=== PATIENT | female | born 2000 | race Caucasian/White ===

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

== ENCOUNTER → 2021-09-13 14:40 | Outpatient (BNVA) | payer BC, MEDICAID, SELFPAY | PROVIDERS: Family Provider Family Medicine; PCP Family Medicine; Visit Provider Emergency Medicine | DX: Z34.90 Encounter for supervision of normal pregnancy, unspecified, unspecified trimester (principal) | CPT/HCPCS: 84703 ==

== ENCOUNTER → 2021-09-22 11:27 | Outpatient (BNVA) | payer BC, MEDICAID, SELFPAY | PROVIDERS: Family Provider Family Medicine; PCP Family Medicine; Visit Provider Nurse Practitioner Family | DX: J02.0 Streptococcal pharyngitis (principal); B34.0 Adenovirus infection, unspecified; E28.2 Polycystic ovarian syndrome | CPT/HCPCS: 87071; 87880 ==

== ENCOUNTER → 2021-09-28 09:58 | Outpatient (BNVA) | payer BC, MEDICAID, SELFPAY | PROVIDERS: Family Provider Family Medicine; PCP Family Medicine; Visit Provider Emergency Medicine | DX: Z32.00 Encounter for pregnancy test, result unknown (principal) | CPT/HCPCS: 84703 ==

== ENCOUNTER → 2021-10-25 13:08 | Outpatient (BNVA) | payer BC, MEDICAID, SELFPAY | PROVIDERS: Family Provider Family Medicine; PCP Family Medicine; Visit Provider Obstetrics & Gynecology | DX: Z34.80 Encounter for supervision of other normal pregnancy, unspecified trimester (principal) | CPT/HCPCS: 80307; 81000; 82950; 84443; 85025; 86592; 86762; 86787; 86803; 86850; 86900; 87086; 87340; 87806 ==

== ENCOUNTER → 2021-11-22 15:47 | Outpatient (BNVA) | payer BC, MEDICAID, SELFPAY | PROVIDERS: Family Provider Family Medicine; PCP Family Medicine; Visit Provider Obstetrics & Gynecology | DX: Z34.80 Encounter for supervision of other normal pregnancy, unspecified trimester (principal) | CPT/HCPCS: 81000; 87491; 87591; 87661 ==

== ENCOUNTER → 2021-12-21 15:59 | Outpatient (BNVA) | payer BC, MEDICAID, SELFPAY | PROVIDERS: Family Provider Family Medicine; PCP Family Medicine; Visit Provider Obstetrics & Gynecology | DX: Z34.80 Encounter for supervision of other normal pregnancy, unspecified trimester (principal) | CPT/HCPCS: 81000 ==

== ENCOUNTER → 2022-01-18 10:25 | Outpatient (BNVA) | payer BC, MEDICAID, SELFPAY | PROVIDERS: Family Provider Family Medicine; PCP Family Medicine; Visit Provider Obstetrics & Gynecology | DX: O09.899 Supervision of other high risk pregnancies, unspecified trimester (principal); Z3A.00 Weeks of gestation of pregnancy not specified | CPT/HCPCS: 84315; 87086 ==

== ENCOUNTER → 2022-01-30 15:44 | Outpatient (BNVA) | payer BC, MEDICAID, SELFPAY | PROVIDERS: Family Provider Family Medicine; PCP Family Medicine; Visit Provider Obstetrics & Gynecology | DX: Z34.90 Encounter for supervision of normal pregnancy, unspecified, unspecified trimester (principal) | CPT/HCPCS: 81000; 87086 ==

== ENCOUNTER → 2022-02-11 14:53 | Outpatient (BNVA) | payer BC, MEDICAID, SELFPAY | PROVIDERS: Family Provider Family Medicine; PCP Family Medicine; Visit Provider Obstetrics & Gynecology | DX: Z34.80 Encounter for supervision of other normal pregnancy, unspecified trimester (principal) | CPT/HCPCS: 81000; 87086 ==

== ENCOUNTER 2022-03-01 22:06 | Outpatient (CLI) | payer BC, MEDICAID, SELFPAY ==
[2022-03-01] VITALS (21 sets, daily range): BP systolic 127–149; BP diastolic 59–79; PULSE 91–109; TEMP 36.8; O2SAT 97–99; BMI 57.3
[2022-03-01 23:15] LABS: Basophils % 0.1 %; Eosinophils # 0.1 10^3/uL (0.0-0.8); Eosinophils % 0.5 %; Hematocrit 33.9 % (37.0-47.0); Hemoglobin 11.6 g/dL (11.5-15.3); Lymphocytes # 2.2 10^3/uL (1.5-6.5); Lymphocytes % 15.1 %; Mean Corpuscular HGB Conc 34.2 g/dL (30.0-36.0); Mean Corpuscular Volume 90.6 fl (81-99); Mean Platelet Volume 9.5 fL (7.4-10.4); Monocytes % 6.8 %; Neutrophils # 11.42 10^3/uL (1.8-8.0); Neutrophils % 76.9 %; Nucleated Red Blood Cells % 0 %; Platelet Count 314 10^3/cmm (130-400); Red Blood Count 3.74 10^6/uL (4.1-5.3); Red Cell Distribution Width 13.4 % (12.1-15.1); White Blood Count 14.9 10^3/uL (4.5-13.0)
[2022-03-01 23:20] LABS: Urine Appearance Clear (CLEAR); Urine Color Yellow (Yellow); pH Urine 6 (5-7)
[2022-03-01 23:21] LABS: Add Urine Microscopic? YES; Bilirubin Urine Neg (Negative); Blood Urine Neg (Negative); Glucose Urine UA Norm (Normal); Ketones Urine Negative (Negative); Leukocyte Esterase Urine Trace (Negative); Nitrate Urine Negative (Negative); Protein Urine Neg (Negative); Urobilinogen Urine Norm (Negative)
[2022-03-01 23:22] LABS: Add Urine Culture? No; Bacteria Urine TRACE /hpf; RBC Urine 0-4 /hpf (0-2); WBC Urine 0-4 /hpf (0-5)
[2022-03-01 23:24] LABS: Amphetamines Screen Urine Negative (Negative); Barbiturates Screen Urine Negative (Negative); Benzodiazepines Screen Urine Negative (Negative); Cocaine Screen Urine Negative (Negative); Opiate Screen Urine Negative (Negative); PCP Screen Urine Negative (Negative); THC Screen Urine Negative (Negative)
[2022-03-01 23:29] LABS: Alanine Aminotransferase 10 U/L (0-33); Albumin Level 3.7 g/dL (3.5-5.2); Alkaline Phosphatase 93 IU/L (35-105); Anion Gap 15.1 (5-19); Aspartate Amino Transferase 12 U/L (0-32); Blood Urea Nitrogen 9 mg/dL (6-20); Calcium 8.2 mg/dL (8.5-10.5); Carbon Dioxide 22 mmol/L (22-29); Chloride 102 mmol/L (98-107); Globulin 2.6 g/dL (1.3-4.6); Glomerular Filtration Rate 157.3 mL/min (90-130); Glucose 82 mg/dL (65-115); Osmolality Calculated 278 mOsm/kg (285-295); Potassium 4.1 mmol/L (3.5-5.1); Sodium 135 mmol/L (136-145); Total Bilirubin 0.2 mg/dL (0.15-1.2); Total Protein 6.3 g/dL (6.6-8.7)
[2022-03-01 23:38] LABS: Urine Creatinine 145 mg/dL (28-217); Urine Protein Random 17 mg/dL
[2022-03-01 23:43] LABS: UPRO/UCREAT Ratio 0.12 mg/mg CR
[2022-03-02 00:02] VITALS: PULSE 106; O2SAT 97
[2022-03-02 00:07] VITALS: PULSE 93; O2SAT 99
[2022-03-02 00:10] VITALS: TEMP 35.9
[2022-03-02 00:12] VITALS: PULSE 102; O2SAT 97
[2022-03-02 00:17] VITALS: PULSE 98; O2SAT 98
[2022-03-02 01:03] VITALS: RESP 18
== END 2022-03-02 00:30 | disposition home or self-care (01) ==
LOC: OPOB 22:06 → OBGYN 22:07
PROVIDERS: Family Provider Family Medicine; PCP Family Medicine; Visit Provider Obstetrics & Gynecology
DX: O16.9 Unspecified maternal hypertension, unspecified trimester (principal); Z3A.00 Weeks of gestation of pregnancy not specified
CPT/HCPCS: 36415; 80053; 80306; 81001; 82570; 84156; 84550; 85025; 99211

== ENCOUNTER → 2022-03-13 11:19 | Outpatient (BNVA) | payer BC, MEDICAID, SELFPAY | PROVIDERS: Family Provider Family Medicine; PCP Family Medicine; Visit Provider Obstetrics & Gynecology | DX: Z34.90 Encounter for supervision of normal pregnancy, unspecified, unspecified trimester (principal) | CPT/HCPCS: 81000 ==

== ENCOUNTER → 2022-03-20 09:36 | Outpatient (BNVA) | payer BC, MEDICAID, SELFPAY | PROVIDERS: Family Provider Family Medicine; PCP Family Medicine; Visit Provider Obstetrics & Gynecology | DX: Z34.90 Encounter for supervision of normal pregnancy, unspecified, unspecified trimester (principal) | CPT/HCPCS: 82950; 85025 ==

== ENCOUNTER → 2022-03-25 13:59 | Outpatient (BNVA) | payer BC, MEDICAID, SELFPAY | PROVIDERS: Family Provider Family Medicine; PCP Family Medicine; Visit Provider Obstetrics & Gynecology | DX: Z34.90 Encounter for supervision of normal pregnancy, unspecified, unspecified trimester (principal) | CPT/HCPCS: 81000 ==

== ENCOUNTER → 2022-03-27 09:30 | Outpatient (BNVA) | payer BC, MEDICAID, SELFPAY | PROVIDERS: Family Provider Family Medicine; PCP Family Medicine; Visit Provider Obstetrics & Gynecology | DX: Z34.90 Encounter for supervision of normal pregnancy, unspecified, unspecified trimester (principal) | CPT/HCPCS: 81000 ==

== ENCOUNTER → 2022-03-28 08:23 | Outpatient (BNVA) | payer BC, MEDICAID, SELFPAY | PROVIDERS: Family Provider Family Medicine; PCP Family Medicine; Visit Provider Obstetrics & Gynecology | DX: Z34.90 Encounter for supervision of normal pregnancy, unspecified, unspecified trimester (principal) | CPT/HCPCS: 82951; 82952 ==

== ENCOUNTER → 2022-04-12 15:43 | Outpatient (BNVA) | payer BC, MEDICAID, SELFPAY | PROVIDERS: Family Provider Family Medicine; PCP Family Medicine; Visit Provider Obstetrics & Gynecology | DX: Z34.80 Encounter for supervision of other normal pregnancy, unspecified trimester (principal) | CPT/HCPCS: 81000; 87081 ==

== ENCOUNTER → 2022-04-24 13:20 | Outpatient (BNVA) | payer BC, MEDICAID, SELFPAY | PROVIDERS: Family Provider Family Medicine; PCP Family Medicine; Visit Provider Obstetrics & Gynecology | DX: Z34.80 Encounter for supervision of other normal pregnancy, unspecified trimester (principal) | CPT/HCPCS: 81000 ==

== ENCOUNTER → 2022-05-02 09:08 | Outpatient (BNVA) | payer BC, MEDICAID, SELFPAY | PROVIDERS: Family Provider Family Medicine; PCP Family Medicine; Visit Provider Obstetrics & Gynecology | DX: Z34.80 Encounter for supervision of other normal pregnancy, unspecified trimester (principal) | CPT/HCPCS: 81000 ==

== ENCOUNTER → 2022-05-09 09:00 | Outpatient (BNVA) | payer BC, MEDICAID, SELFPAY | PROVIDERS: Family Provider Family Medicine; PCP Family Medicine; Visit Provider Obstetrics & Gynecology | DX: Z34.80 Encounter for supervision of other normal pregnancy, unspecified trimester (principal) | CPT/HCPCS: 81000 ==

== ENCOUNTER 2022-05-10 17:43 | Inpatient (IN) | payer BC, MEDICAID, SELFPAY ==
[2022-05-10] VITALS (13 sets, daily range): BP systolic 126–180; BP diastolic 74–99; PULSE 94–123; RESP 18; TEMP 36.4; BMI 60.2
[2022-05-10] MEDS: miSOPROStol 100 mcg tablet 25 MCG VAGINAL ×3 (13:41→22:16)
[2022-05-10 13:44] LABS: Basophils % 0.1 %; Eosinophils # 0.1 10^3/uL (0.0-0.8); Eosinophils % 0.6 %; Hematocrit 33.9 % (37.0-47.0); Lymphocytes # 1.8 10^3/uL (1.5-6.5); Lymphocytes % 16.3 %; Mean Corpuscular HGB Conc 35.4 g/dL (30.0-36.0); Mean Corpuscular Hemoglobin 31.1 pg (28.0-34.0); Mean Corpuscular Volume 87.8 fl (81-99); Mean Platelet Volume 10.9 fL (7.4-10.4); Monocytes # 0.6 10^3/uL (0.2-0.9); Monocytes % 5.5 %; Neutrophils # 8.48 10^3/uL (1.8-8.0); Neutrophils % 77.1 %; Nucleated Red Blood Cells % 0 %; Platelet Count 305 10^3/cmm (130-400); Red Blood Count 3.86 10^6/uL (4.1-5.3); Red Cell Distribution Width 13.5 % (12.1-15.1)
[2022-05-10 14:02] LABS: Slide Review Slide Review Perform
[2022-05-10 14:16] LABS: Alanine Aminotransferase 12 U/L (0-33); Albumin Level 3.5 g/dL (3.5-5.2); Alkaline Phosphatase 100 IU/L (35-105); Anion Gap 17.9 (5-19); Aspartate Amino Transferase 12 U/L (0-32); Blood Urea Nitrogen 10 mg/dL (6-20); Calcium 9.1 mg/dL (8.5-10.5); Carbon Dioxide 19 mmol/L (22-29); Chloride 103 mmol/L (98-107); Globulin 2.8 g/dL (1.3-4.6); Glomerular Filtration Rate 157.3 mL/min (90-130); Glucose 103 mg/dL (65-115); Osmolality Calculated 281 mOsm/kg (285-295); Potassium 3.9 mmol/L (3.5-5.1); Sodium 136 mmol/L (136-145); Total Bilirubin 0.2 mg/dL (0.15-1.2); Total Protein 6.3 g/dL (6.6-8.7); Uric Acid 5.8 mg/dL (2.4-5.7)
[2022-05-10 14:41] LABS: Amphetamines Screen Urine Negative (Negative); Barbiturates Screen Urine Negative (Negative); Benzodiazepines Screen Urine Negative (Negative); Cocaine Screen Urine Negative (Negative); Opiate Screen Urine Negative (Negative); PCP Screen Urine Negative (Negative); THC Screen Urine Negative (Negative)
[2022-05-10 14:56] LABS: UPRO/UCREAT Ratio 0.21 mg/mg CR; Urine Creatinine 383 mg/dL (28-217); Urine Protein Random 81 mg/dL
--- NOTE | 2022-05-10 18:00 | PM.OPHPUD ---
Labor & Delivery H&P Update Date of Procedure: May 11, 2022 Date H&P Performed: 05/09/22 H&P update information: I have reviewed H&P completed within last 30 days, I have examined patient prior to procedure and No changes to prior documentation Changes to previous documentation: The patient presents for induction of labor at term. Admission Diagnosis: iup@ 39 04/16
[2022-05-11] VITALS (93 sets, daily range): BP systolic 109–178; BP diastolic 56–127; PULSE 68–125; RESP 18; TEMP 36.4–38.1; O2SAT 88–100
[2022-05-11] MEDS: miSOPROStol 100 mcg tablet 25 MCG VAGINAL (02:35)
[2022-05-11] MEDS: fentaNYL 50 mcg/mL INJ 2mL IVP (05:01)
--- NOTE | 2022-05-11 10:30 | ANES.PREANE2 ---
Pre-Anesthetic Assessment Height/Weight: Height 1.7 m Weight 174.633 kg Temp Pulse Resp BP Pulse Ox 100.6 F H 84 18 141/75 91 05/11/22 11:07 05/11/22 13:41 05/11/22 05:21 05/11/22 13:41 05/11/22 12:31 epidural Familial anesthetic complications: none Last intake: ice chips Social Tobacco and No alcohol Exam alert, oriented x 3, clear to auscultation bilaterally and regular rate & rhythm Airway Dentition: full CV/HEM Hypertension Metabolic Morbid Obesity Anesthetic Plan ASA status: 3 Anesthesia: Regional (specify below) Risk of > 500 ml blood loss (7ml/kg in children): Yes, adequate IV access and fluids planned Medications/Allergies Home Medications Medication Instructions Recorded Confirmed Last Taken Type prenat.vits,latesha,hyo-uimx-atpue 1 tab PO DAILY 09/22/21 05/10/22 05/03/22 20:00 History Allergies Allergy/AdvReac Type Severity Reaction Status Date / Time Penicillins Allergy UNKNOWN Verified 05/09/22 08:07 citalopram AdvReac Intermediate worsened Verified 05/09/22 08:07 depression Current Medications Generic Name Dose Route Start Last Admin Trade Name Freq PRN Reason Stop Dose Admin Fentanyl 25 - 100 mcg 05/10/22 13:12 05/11/22 05:01 Fentanyl 50 Mcg/Ml Inj 2ml IVP 25 mcg Q1H PRN Administration SEVERE PAIN Dextrose/Lactated Ringer's 1,000 mls @ 125 mls/hr 05/10/22 13:15 05/11/22 11:30 Dextrose 5%-Lactated Ringers IV 125 mls/hr .Q8H DEMIAN Administration Ropivacaine 200 mg in 100 mls @ 13 mls/hr 05/11/22 09:45 05/11/22 11:05 Naropin Premix EPIDURAL 13 mls/hr .Q7H42M DEMIAN Administration Ondansetron HCl 4 mg 05/10/22 13:09 05/11/22 13:18 Ondansetron 2 Mg/Ml Sdv 2 Ml IVP 4 mg Q4H PRN Administration NAUSEA AND VOMITING PFSH Anesthesia Medical History Adenoviral infection Depo-Provera contraceptive status AURORA (generalized anxiety disorder) Hypertension Insomnia Smoking Surgical History History of appendectomy History of tonsillectomy History of wisdom tooth extraction Family History Mother Cervical cancer Grandmother Cancer Maternal Grandfather Clotting disorder Maternal Hypertension Maternal Denies family history of Diabetes CAD (coronary artery disease) Hyperlipidemia Chronic kidney disease (CKD) Bleeding disorder Stroke Female Reproductive History : 1 Data Anesthesia : 05/10/22 13:00 05/10/22 13:15 Short CBC 05/10/22 Range/Units 13:00 WBC 11.0 (4.5-13.0) 10^3/uL Hgb 12.0 (11.5-15.3) g/dL Hct 33.9 L (37.0-47.0) % MCV 87.8 (81-99) fl Plt Count 305 (130-400) 10^3/cmm Neut % (Auto) 77.1 % Neut # (Auto) 8.48 H (1.8-8.0) 10^3/uL BMP 05/10/22 13:15 Sodium 136 Potassium 3.9 Chloride 103 Carbon Dioxide 19 L BUN 10 Creatinine 0.5 Glucose 103 Calcium 9.1 Liver Function 05/10/22 Range/Units 13:15 Total Bilirubin 0.2 (0.15-1.2) mg/dL AST 12 (0-32) U/L ALT 12 (0-33) U/L Alkaline Phosphatase 100 (35-105) IU/L Albumin 3.5 (3.5-5.2) g/dL Cardiac Studies: No Data to Display
[2022-05-11] MEDS: dextrose 5%-lactated ringers 1,000 ML 125 ML IV (11:30)
[2022-05-11] MEDS: ondansetron 2 mg/ML SDV 2 mL 4 MG IVP (13:18)
--- NOTE | 2022-05-11 13:59 | ANES.PROC ---
Anesthesia Procedures Procedure/Date: 05/11/22 Epidural: Time Out Performed: Yes Consents Signed: Procedure Consent Consent: requested by attending/covering physician, from patient, risks and benefits reviewed, patient agrees to proceed and emergency procedure Lumbar Level: L3-L4 Epidural position: sitting Epidural procedure: sterile prep of area, 1% lidocaine to numb the area, 18 g needle, negative for paresthesia passed, neg for paresthesia, test dose given, 1.5% xylocaine 1:200k epi ( 5 cc), 0.2% Ropivacaine bolus ml (5), placed PCEA, no systemic response, sterile dressing applied, L.U.D. no apparent complications and 0.2% Ropiavacaine @ mls/hr (13) Additional Comments: AMI at 7 cm, threaded to 13 cm
[2022-05-11] MEDS: oxytocin 30 UNIT/500 ML BAG IV (14:27)
--- NOTE | 2022-05-11 21:56 | PM.DELIVERY ---
Delivery Note: Date of delivery: May 11, 2022 Pre-delivery diagnoses: iup@ 40 weeks, induction at term. Post-delivery diagnoses: same Procedure: Delivering Physician: Kaylyn Estimated blood loss (mL): 20 Findings: Term male in the GENA presentation with a single nuchal cord reduced at the perineu. Pre-Delivery Course: The patient was admitted for induction at term. She received 4 doses of cytotec. While waiting for breakfast and before starting pitocin, the patient had SROM. Her cervix was 3/75/-2. She had increased pain and received an epidural for pain management. She had complete cervical dilation, was allowed to labor down and began pushing Delivery: The patient had complete cervical dilation and began to push. The head delivered in the GENA position over an intact perineum under epidural anesthesia. The nose and mouth were bulb suctioned. There was a single nuchal cord that was reduced at the perineum. The shoulders and body delivered atraumatically. The baby was placed onto the mother's abdomen. The cord was clamped and cut. Cord blood was obtained. The placenta delivered spontaneously. It was inspected and found to be intact. Inspection of the perineum revealed no repair was required. Estimated blood loss 20 mL. Apgars on baby were 8 at 1 minute and 9 at 5 minutes. Weight of baby is 7 pounds 4 ounces. Mother and baby were stable post delivery. History History History 1 Term Miscarriages/Ectopic Living Children Coding Level of Care Code Acute Patient Resource Specialist for Candelaria Winkler
[2022-05-12] VITALS (13 sets, daily range): BP systolic 127–161; BP diastolic 74–95; PULSE 73–106; RESP 14–18; TEMP 36.6–37.1; O2SAT 96–97
[2022-05-12] MEDS: ibuprofen 800 mg tablet PO ×3 (07:41→21:21)
[2022-05-12] MEDS: prenatal vitamin Capsule 1 CAP PO (07:41)
[2022-05-12] MEDS: docusate sodium 100 mg Capsule PO ×2 (07:41→19:47)
[2022-05-12] MEDS: benzocaine-menthol 78 gm Canister 1 SPRAY TOPICAL (07:42)
--- NOTE | 2022-05-12 08:43 | ANE.PACU2 ---
Inpatient post-anesthesia follow up: Airway intact: Yes Vital signs: Temperature 97.9 F Pulse Rate 102 Respiratory Rate 18 Blood Pressure 138/84 Pulse Oximetry 88 Oxygen Delivery Me thod Room Air Oxygen Flow Rate 10 Fraction of Inspir ed Oxygen Hydration adequate: Yes Nausea and vomiting: No Pain level: 1 Mental status: Baseline
[2022-05-12 09:41] LABS: Hemoglobin 10.8 g/dL (11.5-15.3); Mean Corpuscular HGB Conc 34.8 g/dL (30.0-36.0); Mean Corpuscular Volume 89.1 fl (81-99); Mean Platelet Volume 10.2 fL (7.4-10.4); Platelet Count 286 10^3/cmm (130-400); Red Blood Count 3.48 10^6/uL (4.1-5.3); Red Cell Distribution Width 13.8 % (12.1-15.1); White Blood Count 15.7 10^3/uL (4.5-13.0)
--- NOTE | 2022-05-12 12:50 | P.PN_ITS ---
Vitals/I&O/Wt Last Vital Signs Temp 97.9 F 05/12/22 06:00 Pulse 102 H 05/12/22 06:00 Resp 18 05/12/22 06:00 BP 138/84 05/12/22 06:00 Pulse Ox 88 L 05/11/22 21:13 05/11/22 05/12/22 05/12/22 22:59 06:59 14:59 Intake Total 108.716 / 109.016 Output Total 700 / 700 1800 / 2500 Balance -591.284 / -590.984 -1800 / -2390.984 Physical Exam Narrative: The patient is doing well today. Pain is well controlled. She is having trouble with . I encouraged her to have the nurses help her. Const: COMMON NORMALS: no acute distress, patient oriented x3, no limitations, alert and well nourished GENERAL APPEARANCE: cooperative, comfortable, well kempt and well developed ORIENTATION/CONSCIOUSNESS: Yes awake, Yes oriented to person, Yes oriented to place and Yes oriented to time Resp: COMMON NORMALS: normal respiratory effort EFFORT & INSPECTION: Yes able to speak in complete sentences GI: COMMON NORMALS: Soft to palpation and non-tender PALPATION: Yes Soft to palpation Extremity: COMMON NORMALS: no calf tenderness Neuro: COMMON NORMALS: patient oriented x3 SENSORIUM/ORIENTATION: Yes alert, Yes oriented to person, Yes oriented to place and Yes oriented to time Psych: APPEARANCE: Yes well kempt Urinary Catheter Management: Bergeron: Cath Placed During This Visit: yes, but has since been removed by the nurse Reason for Continuing Indwelling Catheter: Decision to DC Catheter Urinary Catheter Date of Insertion: 05/11/22 Urinary Catheter Time of Insertion: 12:45 Date Urinary Catheter Removed: 05/11/22 Time Urinary Catheter Discontinued: 21:00 Data : 05/12/22 09:35 05/10/22 13:15 Attestations Medical Necessity Statement*: The patient had a vaginal delivery. She has already been here two midnights Coding Level of Care Code Acute Cutter Operator Tile for Candelaria Winkler
[2022-05-13 02:13] VITALS: BP 162/76; PULSE 92; RESP 20; O2SAT 97
--- NOTE | 2022-05-13 02:14 | PC.NURSE ---
During rounding, patient asked about her feet swelling. This nurse examined feet and found to be 2+ pitting edema. Patient stated that she hadn't experienced this much swelling prior to this instance. This nurse checked patient's vitals and her blood pressure was 162/76, heart rate 92, respirations 20, and SpO2 97%.
[2022-05-13 02:28] VITALS: BP 154/80
[2022-05-13 04:00] VITALS: BP 151/91; PULSE 97; RESP 20; TEMP 36.9; O2SAT 97
[2022-05-13] MEDS: docusate sodium 100 mg Capsule PO (08:40)
[2022-05-13] MEDS: ibuprofen 800 mg tablet PO ×2 (08:40→14:29)
[2022-05-13] MEDS: prenatal vitamin Capsule 1 CAP PO (08:41)
--- NOTE | 2022-05-13 12:00 | P.DS_ITS ---
Discharge Providers Date of Admission: 05/10/22 17:43 Date of Discharge: May 13, 2022 Attending Provider at Admission: Breann Patiño MD Attending Provider at Discharge: Breann Patiño MD Primary Care Provider: Caridad Regan MD Reason for Visit Reason for Visit: IOL Hospital Course Hospital Course The patient was admitted for induction at term. She had spontaneous delivery of a term male . She did well and was ready for discharge on day #2 Physical Exam Narrative: no concerns today Const: COMMON NORMALS: no acute distress, patient oriented x3, no limitations, alert and well nourished GENERAL APPEARANCE: cooperative, comfortable, well kempt and well developed ORIENTATION/CONSCIOUSNESS: Yes awake, Yes oriented to person, Yes oriented to place and Yes oriented to time Resp: COMMON NORMALS: normal respiratory effort EFFORT & INSPECTION: Yes able to speak in complete sentences GI: COMMON NORMALS: Soft to palpation and non-tender PALPATION: Yes Soft to palpation Extremity: COMMON NORMALS: no calf tenderness Neuro: COMMON NORMALS: patient oriented x3 SENSORIUM/ORIENTATION: Yes alert, Yes oriented to person, Yes oriented to place and Yes oriented to time Psych: APPEARANCE: Yes well kempt Urinary Catheter Management: Bergeron: Cath Placed During This Visit: yes, but has since been removed by the nurse Reason for Continuing Indwelling Catheter: Decision to DC Catheter Urinary Catheter Date of Insertion: 05/11/22 Urinary Catheter Time of Insertion: 12:45 Date Urinary Catheter Removed: 05/11/22 Time Urinary Catheter Discontinued: 21:00 Discharge Data Studies Completed and Pending Laboratory Results WBC 15.7 10^3/uL (4.5-13.0) H 05/12/22 09:35 RBC 3.48 10^6/uL (4.1-5.3) L 05/12/22 09:35 Hgb 10.8 g/dL (11.5-15.3) L 05/12/22 09:35 Hct 31.0 % (37.0-47.0) L 05/12/22 09:35 MCV 89.1 fl (81-99) 05/12/22 09:35 MCH 31.0 pg (28.0-34.0) 05/12/22 09:35 MCHC 34.8 g/dL (30.0-36.0) 05/12/22 09:35 RDW 13.8 % (12.1-15.1) 05/12/22 09:35 Plt Count 286 10^3/cmm (130-400) 05/12/22 09:35 MPV 10.2 fL (7.4-10.4) 05/12/22 09:35 Neut % (Auto) 77.1 % 05/10/22 13:00 Lymph % (Auto) 16.3 % 05/10/22 13:00 [place] % (Auto) 5.5 % 05/10/22 13:00 Eos % (Auto) 0.6 % 05/10/22 13:00 Baso % (Auto) 0.1 % 05/10/22 13:00 Neut # (Auto) 8.48 10^3/uL (1.8-8.0) H 05/10/22 13:00 Lymph # (Auto) 1.8 10^3/uL (1.5-6.5) 05/10/22 13:00 [place] # (Auto) 0.6 10^3/uL (0.2-0.9) 05/10/22 13:00 Eos # (Auto) 0.1 10^3/uL (0.0-0.8) 05/10/22 13:00 Baso # (Auto) 0.0 10^3/uL (0.0-0.1) 05/10/22 13:00 Nucleated RBC % (auto) 0 % 05/10/22 13:00 Nucleated RBCs # 0.0 /100WBC 05/10/22 13:00 Sodium 136 mmol/L (136-145) 05/10/22 13:15 Potassium 3.9 mmol/L (3.5-5.1) 05/10/22 13:15 Chloride 103 mmol/L (98-107) 05/10/22 13:15 Carbon Dioxide 19 mmol/L (22-29) L 05/10/22 13:15 Anion Gap 17.9 (5-19) 05/10/22 13:15 BUN 10 mg/dL (6-20) 05/10/22 13:15 Creatinine 0.5 mg/dL (0.5-0.9) 05/10/22 13:15 GFR Calculation 157.3 mL/min (90-130) H 05/10/22 13:15 Glucose 103 mg/dL (65-115) 05/10/22 13:15 Calculated Osmolality 281 mOsm/kg (285-295) L 05/10/22 13:15 Uric Acid 5.8 mg/dL (2.4-5.7) H 05/10/22 13:15 Calcium 9.1 mg/dL (8.5-10.5) 05/10/22 13:15 Total Bilirubin 0.2 mg/dL (0.15-1.2) 05/10/22 13:15 AST 12 U/L (0-32) 05/10/22 13:15 ALT 12 U/L (0-33) 05/10/22 13:15 Alkaline Phosphatase 100 IU/L (35-105) 05/10/22 13:15 Total Protein 6.3 g/dL (6.6-8.7) L 05/10/22 13:15 Albumin 3.5 g/dL (3.5-5.2) 05/10/22 13:15 Globulin 2.8 g/dL (1.3-4.6) 05/10/22 13:15 U Random Total Protein 81 mg/dL 05/10/22 13:30 Urine Creatinine 383 mg/dL (28-217) H 05/10/22 13:30 Protein/Creatinin Ratio 0.21 mg/mg CR 05/10/22 13:30 Urine Opiates Screen Negative ng/mL (Negative) 05/10/22 13:30 Ur Barbiturates Screen Negative ng/mL (Negative) 05/10/22 13:30 Ur Phencyclidine Scrn Negative ng/mL (Negative) 05/10/22 13:30 Ur Amphetamines Screen Negative ng/mL (Negative) 05/10/22 13:30 U Benzodiazepines Scrn Negative ng/mL (Negative) 05/10/22 13:30 Urine Cocaine Screen Negative ng/mL (Negative) 05/10/22 13:30 U Marijuana (THC) Screen Negative ng/mL (Negative) 05/10/22 13:30 Vitals Last Vital Signs Temp 98.4 F 05/13/22 04:00 Pulse 97 05/13/22 04:00 Resp 20 H 05/13/22 04:00 BP 151/91 05/13/22 04:00 Pulse Ox 97 05/13/22 04:00 Discharge Plan Discharge Patient Disposition: Home Condition: Stable Prescriptions: Continued prenat.vits,latesha,tru-[id number]-uwrqi Tablet 1 tab PO DAILY 0RF Discharge Orders: Discharge Order (Routine); Ordered 05/13/22 Ordered By: Breann Patiño Patient Instructions: Depression (DC), Bleeding (DC), Preeclampsia and Eclampsia After Delivery (GEN), OB Discharge Report, OB Food/Drug Interaction Guide, OB Home Care, OB Proud Parent Packet, OB Vaginal Deliveries - [facility] Discharge Attestations Time Spent in Discharge Care*: less than 30 min Quality Metrics Clinical Quality Measures [ No reported AMI, CVA or VTE this stay] Coding Level of Care Code Acute Chg FW DC note
[2022-05-13 14:44] VITALS: BP 143/85; PULSE 82; RESP 16; TEMP 36.3
[2022-05-13 14:45] VITALS: BP 143/85; PULSE 82; RESP 16; TEMP 36.3
== END 2022-05-13 15:35 | disposition home or self-care (01) | DRG 807 ==
LOC: OPOB 17:44 → OBGYN 17:44
PROVIDERS: Admitting Provider Obstetrics & Gynecology; Family Provider Family Medicine; PCP Family Medicine; Visit Provider Obstetrics & Gynecology
DX: O99.334 Smoking (tobacco) complicating childbirth (principal); Z37.0 Single live birth; F17.290 Nicotine dependence, other tobacco product, uncomplicated; O99.324 Drug use complicating childbirth; F12.90 Cannabis use, unspecified, uncomplicated; O99.344 Other mental disorders complicating childbirth; F41.1 Generalized anxiety disorder; Z3A.40 40 weeks gestation of pregnancy; O69.81X0 Labor and delivery complicated by cord around neck, without compression, not applicable or unspecified
CPT/HCPCS: 36415; 51702; 59025; 59409; 80053; 80306; 82570; 84156; 84550; 85025; 85027; 96374; J2405; J2795; J3010

== ENCOUNTER → 2022-07-11 16:10 | Outpatient (BNVA) | payer BC, MEDICAID, SELFPAY | PROVIDERS: Family Provider Family Medicine; PCP Family Medicine; Visit Provider Emergency Medicine | DX: J00 Acute nasopharyngitis [common cold] (principal) | CPT/HCPCS: 87880 ==

== ENCOUNTER → 2023-02-24 12:33 | Outpatient (BNVA) | payer BC, MEDICAID, SELFPAY | PROVIDERS: Family Provider Family Medicine; PCP Family Medicine; Visit Provider Emergency Medicine | DX: R30.9 Painful micturition, unspecified (principal) | CPT/HCPCS: 81000; 87086 ==

== ENCOUNTER 2023-03-06 18:05 | Emergency (ER) | payer BC, MEDICAID, SELFPAY ==
[2023-03-06 18:30] VITALS: BP 159/116; PULSE 90; RESP 16; TEMP 36.8; O2SAT 100; BMI 54.8
--- NOTE | 2023-03-06 19:24 | XRR_ITS ---
PROCEDURE INFORMATION: Exam: XR Left Ankle Exam date and time: 03/06/2023 7:31 PM Age: 22 years old Clinical indication: Pain; Ankle; Left; Additional info: Fall with pain TECHNIQUE: Imaging protocol: Radiologic exam of the left ankle. Views: 3 or more views. COMPARISON: No relevant prior studies available. FINDINGS: Bones/joints: Osseous structures are intact. Negative for fracture. Joint spaces are preserved. Soft tissues: Soft tissue swelling around the ankle. XR/XR ankle LT min 3V* [id number] IMPRESSION: No acute osseous abnormalities.
--- NOTE | 2023-03-06 19:25 | W.ED.EXTPRO ---
HPI - Extremity Problem General: Chief complaint: Extremity Injury, Lower Stated complaint: Injury Left Leg Time Seen by Provider: 03/06/23 18:48 History of Present Illness: Patient is in today for left ankle pain. She reports that she fell going down the steps of her mom's porch this morning and felt a pop on the left ankle that feels similar to when she has injured a ligament in the past. She is requesting an x-ray Associated symptoms: Deny fever(s) Review of Systems Const: Denies: fever(s) or chills Musc: Reports: extremity pain and joint pain PFSH ED PFSH: Medical History Adenoviral infection Contraceptive management Depo-Provera contraceptive status AURORA (generalized anxiety disorder) Hypertension Insomnia Smoking Surgical History History of appendectomy History of tonsillectomy History of wisdom tooth extraction Family History Mother Cervical cancer Grandmother Cancer Maternal Grandfather Clotting disorder Maternal Hypertension Maternal Denies family history of Diabetes CAD (coronary artery disease) Hyperlipidemia Chronic kidney disease (CKD) Bleeding disorder Stroke Social History Smoking and tobacco status: current every day smoker (vape) Female Reproductive History: Spontaneous abortions: No Physical Exam Const: COMMON NORMALS: no acute distress, patient oriented x3 and alert Resp: COMMON NORMALS: normal respiratory effort and No use of accessory muscles Extremity: NARRATIVE EXTREMITY EXAM: Left ankle with mild tenderness to palpation lateral malleolus no obvious bony or soft tissue deformity is appreciated. There is minimal swelling about the lateral aspect of the ankle. Pedal pulses intact and palpable. CSM to distal foot is within normal limits. Patient has increased pain with internal rotation of the ankle. She is able to bear weight but does ambulate with a limp. Neuro: COMMON NORMALS: patient oriented x3 SENSORIUM/ORIENTATION: Yes alert Course Vital Signs: Vital signs: Vital Signs Temperature 98.3 F 03/06/23 18:30 Pulse Rate 90 03/06/23 18:30 Respiratory Rate 16 03/06/23 18:30 Blood Pressure 159/116 03/06/23 18:30 Pulse Oximetry 100 03/06/23 18:30 Oxygen Delivery Me thod Room Air 03/06/23 18:30 MDM - Extremity (Nontraumatic) Medical Decision Making Differentials include ankle sprain versus fracture Advised the patient that given her physical exam findings I have low suspicion for a bony fracture. Patient is adamant that she receive an x-ray to rule out fracture at this time. X-ray 3 view left ankle wet read: No acute osseous deformity Radiologist review no acute osseous abnormalities We will treat patient for ankle sprain. Discussed conservative treatments at home including ice, rest, elevation. Maurice wrap is applied with crutches. Minimize weightbearing for 3 days and then advance weightbearing as tolerated. Follow-up with primary care provider as needed. Return to the ER for new or worsening symptoms Lab Data Radiology Impressions Ankle X-Ray 03/06/23 19:24 IMPRESSION: No acute osseous abnormalities. Discharge Plan Discharge Patient Disposition: Home Clinical Impression: Ankle sprain and strain Condition: Stable Prescriptions: No Action fexofenadine-pseudoephedrine [Henny-D 12 Hour] 60-120 mg tablet extended release 12 hr 1 tab PO Q12H PRN (Reason: sinus symptoms) 14 Days Qty: 30 0RF nitrofurantoin monohyd/m-cryst [Macrobid] 100 mg capsule 100 mg PO BID 5 Days Qty: 10 0RF Rx Instructions: must administer with a meal/food phenazopyridine [Pyridium] 200 mg tablet 200 mg PO Q8H PRN (Reason: pain) Qty: 6 0RF Discharge Orders: Discharge ED (Routine); Ordered 03/06/23 Ordered By: Ena Arriaga Referrals: Caridad Regan MD [Primary Care Provider] - Discharge Diet: Usual diet Discharge Activity: Limit activity as instructed Patient Instructions: Ankle Sprain (ED) Activity Restrictions/Additional Instructions: Use crutches to limit weightbearing for the next 3 days and then advance weightbearing as tolerated. Maurice wrap the ankle to provide help with swelling and extra support. Rest, elevate, ice the ankle. Ice should be applied 3-4 times a day for 10 minutes at a time. Alternate Motrin and Tylenol as needed for pain and swelling. Follow-up with primary care provider as needed. Return to the ER for new or worsening symptoms Coding Level of Care Code ED Sanitation Worker Cleaning Equipment for Candelaria Winkler
== END 2023-03-06 20:40 | disposition home or self-care (01) ==
PROVIDERS: Emergency Provider Nurse Practitioner Family; PCP Family Medicine
DX: S93.402A Sprain of unspecified ligament of left ankle, initial encounter (principal); W10.9XXA Fall (on) (from) unspecified stairs and steps, initial encounter
CPT/HCPCS: 73610; 99283; E0114

== ENCOUNTER → 2023-03-11 10:41 | Outpatient (BNVA) | payer BC, MEDICAID, SELFPAY | PROVIDERS: PCP Family Medicine; Visit Provider Family Medicine | DX: R79.89 Other specified abnormal findings of blood chemistry (principal); Z13.6 Encounter for screening for cardiovascular disorders; Z13.1 Encounter for screening for diabetes mellitus; D64.9 Anemia, unspecified | CPT/HCPCS: 80053; 80061; 84443; 85025 ==

== ENCOUNTER → 2024-12-01 13:58 | Outpatient (BNVA) | payer SELFPAY | PROVIDERS: PCP Family Medicine; Visit Provider Nurse Practitioner Women's Health | DX: Z01.419 Encounter for gynecological examination (general) (routine) without abnormal findings (principal) | CPT/HCPCS: 87624 ==

== ENCOUNTER → 2025-07-13 08:42 | Outpatient (BNVA) | payer BC, SELFPAY | PROVIDERS: PCP Family Medicine; Visit Provider Family Medicine | DX: Z34.91 Encounter for supervision of normal pregnancy, unspecified, first trimester (principal); Z72.51 High risk heterosexual behavior | CPT/HCPCS: 81025; 84702 ==

== ENCOUNTER → 2025-08-16 10:54 | Outpatient (BNVA) | payer BC, SELFPAY | PROVIDERS: PCP Family Medicine; Visit Provider Nurse Practitioner Women's Health | DX: Z32.01 Encounter for pregnancy test, result positive (principal); N91.2 Amenorrhea, unspecified | CPT/HCPCS: 81025; 84443; 84702; 86850; 86900 ==

== ENCOUNTER 2025-08-22 09:21 | Outpatient (CLI) | payer BC, MEDICAID, SELFPAY ==
--- NOTE | 2025-08-22 09:30 | US_ITS ---
WS: [id number] EARLY OBSTETRICAL ULTRASOUND (<14 WEEKS). HISTORY: N91.2 - Amenorrhea, unspecified COMPARISON: None available. Only transabdominal imaging is submitted. Single intrauterine gestational sac is identified. Cardiac activity at 158 BPM. [place]-rump length measures 3.7 cm which corresponds to a gestation of 10w4d. Normal-appearing yolk sac and amnion demonstrated. No subchorionic hemorrhage. No free fluid. Neither ovary identified. US/US OB <= 14 weeks fetus [id number] IMPRESSION: 1. Single intrauterine gestation of 10w4d with an EDC of 03/16/2026. 2. Limited evaluation of the pelvis. No transvaginal imaging submitted. Radhae r ovary identified. 3. Normal cardiac activity.
== END 2025-08-22 09:22 | disposition home or self-care (01) ==
LOC: RAD 09:23
PROVIDERS: PCP Family Medicine; Visit Provider Nurse Practitioner Women's Health
DX: Z34.91 Encounter for supervision of normal pregnancy, unspecified, first trimester (principal); N91.2 Amenorrhea, unspecified; Z3A.10 10 weeks gestation of pregnancy
CPT/HCPCS: 76801

== ENCOUNTER → 2025-08-30 08:30 | Outpatient (BNVA) | payer BC, MEDICAID, SELFPAY | PROVIDERS: PCP Family Medicine; Visit Provider Nurse Practitioner Women's Health | DX: Z34.91 Encounter for supervision of normal pregnancy, unspecified, first trimester (principal); I10 Essential (primary) hypertension | CPT/HCPCS: 80053; 80307; 81000; 82570; 82950; 84156; 84439; 84481; 84550; 85025; 86592; 86762; 86803; 87086; 87340; 87491; 87591; 87661; 87806 ==

== ENCOUNTER 2025-09-14 10:20 | Outpatient (CLI) | payer BC, MEDICAID, SELFPAY ==
[2025-09-14 11:40] LABS: Total Volume, Urine 900 mL
== END 2025-09-14 10:21 | disposition home or self-care (01) ==
LOC: LAB 10:22
PROVIDERS: PCP Family Medicine; Visit Provider Nurse Practitioner Women's Health
DX: I10 Essential (primary) hypertension (principal); Z34.90 Encounter for supervision of normal pregnancy, unspecified, unspecified trimester
CPT/HCPCS: 84156; 84315

== ENCOUNTER → 2025-09-28 12:56 | Outpatient (BNVA) | payer BC, MEDICAID, SELFPAY | PROVIDERS: PCP Family Medicine; Visit Provider Nurse Practitioner Women's Health | DX: Z34.80 Encounter for supervision of other normal pregnancy, unspecified trimester (principal); Z34.90 Encounter for supervision of normal pregnancy, unspecified, unspecified trimester | CPT/HCPCS: 84315; 84443 ==

== ENCOUNTER 2025-10-09 00:05 | Emergency (ER) | payer BC, MEDICAID, SELFPAY ==
[2025-10-09] VITALS (8 sets, daily range): BP systolic 160–165; BP diastolic 79–104; PULSE 72–98; RESP 16–19; TEMP 36.9; O2SAT 94–100; BMI 52.7
--- OUTSIDE RECORDS SUMMARY | 2025-10-09 00:15 | XMS_ITS | Clinical Summary ---
Author Organization [facility] Address [address] [place]: Epic Prelude ADT [place] [address] Care Team Providers Care Base Remover Name Role Phone Onesimo Puente MD Primary Care Provider Allergies Active Allergy Reactions Criticality Noted Date Comments Azithromycin Rash Low 06/27/2011 Penicillins Seizure High 12/27/2008 Medications estradiol cypionate (DEPO-ESTRADIO L) 5 mg/mL Oil Inject 5 mg by intramuscular injection one time only. 1 Active methocarbamoL (ROBAXIN) 500 mg tablet Take 1 Tablet (500 mg) by mouth 4 times daily. For muscle spasm 40 Tablet 1 1 Active Active Problems Problem Noted Date Diagnosed Date Hypertrophy of tonsil with adenoids 08/01/2011 NADEGE (obstructive sleep apnea) 08/01/2011 Snoring 07/19/2011 Hypertrophy of tonsils 07/19/2011 Sleep disturbance 07/19/2011 Chronic cough 06/05/2009 Overview (03/08/2021): Probably a variant on asthma Immunizations Immunization Administration Dates Next Due (M-M-R II/PRIORIX)(12 MO UP) MEASLES, MUMPS AND RUBELLA VIRUS VACCINE, 0.5 ML IM/SUBCUT 07/16/2006 (TDVAX)(7 YRS UP) TETANUS AN D DIPHTHERIA TOXOIDS, ADSORBED (2 LF OF TETANUS TOXOID AND 2 LF OF DIPHTHERIA TOXOID), 0.5ML (PF), IM 04/26/2004 Dt Dtp Dtap Vaccine 02/20/2007,07/16/2006,2001 HIB, Unspecified Formulation 06/18/2006 Hepatitis B Vaccine 06/18/2006 IPV/OPV 02/20/2007,02/10/2002 Social History Tobacco Use Types Packs/Day Years Used Date Smoking Tobacco: Every Day Smokeless Tobacco: Current Alcohol Use Standard Drinks/Week Comments No 0 (1 standard drink = 0.6 oz pur e alcohol) Comments Unknown Sex and Gender Information Value Date Recorded Sex Assigned at Not on file Legal Sex Female 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 Gender Identity Not on file Sexual Orientation Not on file Last Filed Vital Signs Vital Sign Reading Time Taken Comments Blood Pressure 154/83 12/08/2020 3:00 AM MANDARIN TEACHER Pulse - - Temperature 36.7 C (98.1 F) 12/08/2020 2:24 AM MANDARIN TEACHER Respiratory Rate 18 12/08/2020 3:00 AM MANDARIN TEACHER Oxygen Saturation - - Inhaled Oxygen Concentration - - Weight 143.7 kg (316 lb 12.8 oz) 12/08/2020 2:24 AM MANDARIN TEACHER Height 170.2 cm (5' 7 ) 12/08/2020 2:24 AM MANDARIN TEACHER Body Mass Index 49.62 12/08/2020 2:24 AM MANDARIN TEACHER Plan of Treatment Health Maintenance Due Date Last Done Comments HEPATITIS B VACCINES (2 of 3 - 3-dose series) 07/16/2006 06/18/2006 CHLAMYDIA SCREENING (ANNUAL) 11-24 YEARS 2012 HPV VACCINES (1 - 3-dose series) 2016 DTAP/TDAP/TD VACCINES (4 - Tdap) 2020 02/20/2007, 07/16/2006, 04/26/2004, Additional history exists CERVICAL CANCER SCREENING 2022 HPV/Cotest (21-29) 2022 PAP SMEAR 2022 INFLUENZA VACCINE (#1) 2025 Care Teams Base Remover Relationship Specialty Start Date End Date Onesimo Puente MD [address] [place] [address] PCP - General Family Practice 02/14/11
--- NOTE | 2025-10-09 00:25 | USR_ITS ---
PROCEDURE INFORMATION: Exam: US , Limited Exam date and time: 10/09/2025 2:09 AM Age: 24 years old Clinical indication: Lmp or gestational age (in weeks): 18w1d per patient; Antepartum complications; Bleeding; ; Additional info: 18w preg. Vaginal bleeding LABS AND CLINICAL REPORTS: Gestational age (Established): 18 w 1 d Estimated due date (Established): 03/11/2026 TECHNIQUE: Imaging protocol: Real-time ultrasound of the maternal uterus with image documentation. Exam focused on the clinical indication. COMPARISON: US OB <= 14 weeks fetus [id number] 08/22/2025 9:44 AM FINDINGS: Gestation: There is a single live intrauterine with cephalic presentation. The placenta is posteriorly situated and low-lying possibly extending down to the cervical region. heart rate: 159 bpm Biometric measurements have not been provided. MATERNAL: Cervix: Closed. US/US OB limited [id number] IMPRESSION: 1. There is a single live intrauterine with cephalic presentation. Biometric measurements have not been provided for interval growth assessment. 2. There is a posteriorly situated placenta which appears to be low-lying. Follow-up complete obstetrical sonographic evaluation is recommended for further evaluation.
[2025-10-09 00:43] LABS: Glucose Urine UA Negative (Normal); Nitrate Urine Negative (Negative)
[2025-10-09 00:47] LABS: Hematocrit 34.6 % (36-47); Hemoglobin 12.00 g/dL (11.27-16.99); Mean Corpuscular HGB Conc 34.7 g/dL (30-55); Mean Corpuscular Hemoglobin 30.5 pg (27-33); Mean Corpuscular Volume 87.8 fl (85-98); Nucleated Red Blood Cells % 0 %; Platelet Count 267 10^3/cmm (157-399); Red Blood Count 3.94 10^6/uL (3.85-5.65); White Blood Count 10.13 10^3/uL (3.29-11.43)
[2025-10-09 00:48] LABS: Add Urine Microscopic? YES
--- NOTE | 2025-10-09 00:49 | W.ED.PREGNAN ---
HPI - General: Chief complaint: Vaginal Bleeding Stated complaint: 18 wks spotting Time Seen by Provider: 10/09/25 00:21 History of Present Illness: 24-year-old G3, P1 with 1 prior miscarriage at 5 weeks. She is 18 weeks currently. She has had had a complicated only by hypertension to this point. She noticed some spotting last night. More bright red blood this evening. She says she has had cramping on and off for the last week or so. No fever. No other discharge. She had intercourse with her partner last night, not tonight. She has not yet felt her baby move this . She has had a prior ultrasound showing intrauterine . Related Data Home Medications ?Medication ?Instructions ?Recorded ?Confirmed vitamins no.102-iron 90 1 cap PO DAILY 07/13/25 09/28/25 mg-folate 1 mg-dha 200 mg capsule aspirin 81 mg tablet 81 mg PO DAILY 09/14/25 09/28/25 Previous Rx's ?Medication ?Instructions ?Recorded famotidine 20 mg tablet (Pepcid) 20 mg PO BID #60 tabs 08/16/25 nifedipine 30 mg tablet,extended 30 mg PO DAILY #60 tabs 08/29/25 release Allergies Allergy/AdvReac Type Severity Reaction Status Date / Time Penicillins Allergy UNKNOWN Verified 10/09/25 00:19 citalopram AdvReac Intermediate worsened Verified 10/09/25 00:19 depression PFSH ED PFSH: Medical History Contraceptive management Hypertension Adenoviral infection Smoking Insomnia AURORA (generalized anxiety disorder) Depo-Provera contraceptive status Surgical History History of tonsillectomy History of appendectomy History of wisdom tooth extraction Family History Mother Cervical cancer Grandmother Cancer Maternal Grandfather Clotting disorder Maternal Hypertension Maternal Denies family history of Diabetes CAD (coronary artery disease) Hyperlipidemia Chronic kidney disease (CKD) Bleeding disorder Stroke Social History Smoking and tobacco/nicotine status: current every day tobacco/nicotine user (vape) Female Reproductive History: Spontaneous abortions: No Physical Exam Const: COMMON NORMALS: no acute distress GENERAL APPEARANCE: cooperative; not ill appearing and not frail appearing HENMT: COMMON NORMALS: normocephalic, atraumatic and Normal external nose present HEAD & SCALP: normocephalic and atraumatic FACE & SINUS: normal facial exam and face symmetric NOSE: Normal external nose present Eye: COMMON NORMALS: Equal, round and reactive pupils present and EOMs intact bilaterally PUPIL: Yes Equal, round and reactive pupils present Neck/C-Spine: GENERAL: Yes trachea midline Chest: CHEST: Yes Symmetrical chest wall rise Resp: COMMON NORMALS: normal respiratory effort, No retractions, No use of accessory muscles and clear to auscultation bilaterally AUSCULTATION: clear to auscultation bilaterally Cardio: COMMON NORMALS: regular rate and regular rhythm RATE: regular rate RHYTHM: regular rhythm GI: COMMON NORMALS: Normal to inspection, nondistended, normoactive bowel sounds present Extremity: COMMON NORMALS: no pedal edema Neuro: YANCY COMA SCALE: document GCS findings Yancy coma scale eye opening: Spontaneous Jordan coma scale verbal response: Orientated Jordan coma scale motor response: Obey commands Jordan coma scale total score: 15 SENSORY EXAM: Yes extremities (intact) Psych: COMMON NORMALS: speech normal SPEECH: Yes normal speech Skin: COMMON NORMALS: no rashes or lesions noted GENERAL SKIN EXAM: no rashes or lesions noted Course Vital Signs: Vital signs: Vital Signs Temperature 98.4 F 10/09/25 00:11 Pulse Rate 72 10/09/25 02:51 Respiratory Rate 18 10/09/25 02:51 Blood Pressure 162/83 10/09/25 02:51 Pulse Oximetry 97 10/09/25 02:51 Oxygen Delivery Me thod Room Air 10/09/25 00:11 MDM - OB/Uterine Contractions Medical Decision Making Blood pressure was initially high, but improved to some degree. The patient admits she has not taken her Procardia in the last 3 days. She is encouraged to do this. Other vitals are stable. CBC BMP are normal. Urinalysis is negative for infection. It is contaminated. Ultrasound reveals normal heart rate. Appropriate activity. Placenta is at appropriate position for gestational age. No evidence of hemorrhage. Cervix is closed. Pelvic rest. Stable for discharge Lab Data 10/09/25 00:41 10/09/25 00:41 Radiology Impressions Obstetrics Ultrasound 10/09/25 00:25 IMPRESSION: 1. There is a single live intrauterine with cephalic presentation. Biometric measurements have not been provided for interval growth assessment. 2. There is a posteriorly situated placenta which appears to be low-lying. Follow-up complete obstetrical sonographic evaluation is recommended for further evaluation. Laboratory Results WBC 10.13 10^3/uL (3.29-11.43) 10/09/25 00:41 RBC 3.94 10^6/uL (3.85-5.65) 10/09/25 00:41 Hgb 12.00 g/dL (11.27-16.99) 10/09/25 00:41 Hct 34.6 % (36-47) L 10/09/25 00:41 MCV 87.8 fl (85-98) 10/09/25 00:41 MCH 30.5 pg (27-33) 10/09/25 00:41 MCHC 34.7 g/dL (30-55) 10/09/25 00:41 RDW 13.2 % (12.1-15.1) 10/09/25 00:41 Plt Count 267 10^3/cmm (157-399) 10/09/25 00:41 MPV 9.2 fL (7.4-10.4) 10/09/25 00:41 Neut % (Auto) 67.6 % 10/09/25 00:41 Lymph % (Auto) 23.0 % 10/09/25 00:41 Reynolds % (Auto) 7.9 % 10/09/25 00:41 Eos % (Auto) 0.9 % 10/09/25 00:41 Baso % (Auto) 0.2 % 10/09/25 00:41 Neut # (Auto) 6.85 10^3/uL (1.8-7.7) 10/09/25 00:41 Lymph # (Auto) 2.3 10^3/uL (0.8-4.8) 10/09/25 00:41 Reynolds # (Auto) 0.8 10^3/uL (0.2-0.9) 10/09/25 00:41 Eos # (Auto) 0.1 10^3/uL (0.0-0.8) 10/09/25 00:41 Baso # (Auto) 0.0 10^3/uL (0.0-0.1) 10/09/25 00:41 Nucleated RBC % (auto) 0 % 10/09/25 00:41 Nucleated RBCs # 0.0 /100WBC 10/09/25 00: PT 12.40 SECONDS (12.1-14.9) 10/09/25 00:41 INR 0.86 (0.8-1.2) 10/09/25 00: APTT 25.0 SECONDS (23.9-36.7) 10/09/25 00:41 Sodium 138 mmol/L (136-145) 10/09/25 00:41 Potassium 3.8 mmol/L (3.5-5.1) 10/09/25 00:41 Chloride 103 mmol/L (98-107) 10/09/25 00:41 Carbon Dioxide 23 mmol/L (22-29) 10/09/25 00:41 Anion Gap 15.8 (5-19) 10/09/25 00:41 BUN 10 mg/dL (6-20) 10/09/25 00:41 Creatinine 0.5 mg/dL (0.5-0.9) 10/09/25 00:41 GFR Calculation 152.9 mL/min (90-130) H 10/09/25 00:41 Glucose 80 mg/dL (65-115) 10/09/25 00: Calculated Osmolality 284 mOsm/kg (285-295) L 10/09/25 00:41 Calcium 9.3 mg/dL (8.5-10.5) 10/09/25 00:41 Total Bilirubin 0.2 mg/dL (0.15-1.2) 10/09/25 00:41 AST 14 U/L (0-32) 10/09/25 00:41 ALT 21 U/L (0-33) 10/09/25 00:41 Alkaline Phosphatase 49 U/L (35-105) 10/09/25 00:41 Total Protein 6.5 g/dL (6.6-8.7) L 10/09/25 00:41 Albumin 4.1 g/dL (3.5-5.2) 10/09/25 00:41 Globulin 2.4 g/dL (1.3-4.6) 10/09/25 00:41 Ser , Semi-Qnt 5883.00 mIU/mL 10/09/25 00:41 Urine Color Yellow (Yellow) 10/09/25 00:33 Urine Appearance Cloudy (CLEAR) A 10/09/25 00:33 Urine pH 6.0 (5-7) 10/09/25 00:33 Ur Specific Lindley 1.033 (1.005-1.030) H 10/09/25 00:33 Urine Protein Trace (Negative) A 10/09/25 00: Urine Glucose (UA) Negative (Normal) 10/09/25 00: Urine Ketones Trace (Negative) 10/09/25 00: Urine Blood Trace (Negative) A 10/09/25 00: Urine Nitrate Negative (Negative) 10/09/25 00: Urine Bilirubin Negative (Negative) 10/09/25 00: Urine Urobilinogen 1.0 mg/dL (Negative) 10/09/25 00: Ur Leukocyte Esterase Trace (Negative) A 10/09/25 00: Urine RBC 0-2 /hpf (0-2) 10/09/25 00: Urine WBC 21-50 /hpf (0-5) H 10/09/25 00:33 Ur Squamous Epith Cells 21-50 /hpf (0-5) H 10/09/25 00:33 Amorphous Sediment Not Reportable 10/09/25 00: Urine Bacteria 4+ /hpf (NONE) H 10/09/25 00: Hyaline Casts 0.40 /lpf 10/09/25 00:33 All radiology interpretation(s) finalized by discharge Discharge Plan Discharge Patient Disposition: Home Clinical Impression: Vaginal bleeding before 22 weeks gestation Condition: Stable Prescriptions: No Action PNV [id number] 90 mg iron- 1 mg-200 mg capsule 1 cap PO DAILY famotidine [Pepcid] 20 mg tablet 20 mg PO BID Qty: 60 2RF aspirin 81 mg tablet 81 mg PO DAILY nifedipine 30 mg tablet extended release 30 mg PO DAILY Qty: 60 1RF Rx Instructions: take one tab once daily Discharge Orders: Discharge ED (Routine); Ordered 10/09/25 Ordered By: Johnathan Francis Referrals: Caridad Regan MD [Primary Care Provider, Family Practice] Patient Instructions: Opioid Safety, Pain Management, Patient Portal & Marii Instructions Activity Restrictions/Additional Instructions: Pelvic rest (no sexual intercourse, limit lifting to 10 pounds, limit bending or stooping or stairs) until cleared by your doctor. Return for brisk vaginal bleeding, soaking 1 pad per hour for 3 hours straight or more. Return for development of fever, or any other concerning symptoms. Call your doctor Friday for follow-up appointment. Print Language: Irish Coding Level of Care Code ED Assistant Import Manager for Candelaria Winkler
[2025-10-09 00:51] LABS: Specific Gravity, Urine 1.033 (1.005-1.030)
[2025-10-09 00:59] LABS: INR 0.86 (0.8-1.2); Prothrombin Time 12.40 SECONDS (12.1-14.9)
[2025-10-09 01:00] LABS: Partial Thromboplastin Time 25.0 SECONDS (23.9-36.7)
[2025-10-09 01:18] LABS: Alanine Aminotransferase 21 U/L (0-33); Albumin Level 4.1 g/dL (3.5-5.2); Alkaline Phosphatase 49 U/L (35-105); Anion Gap 15.8 (5-19); Aspartate Amino Transferase 14 U/L (0-32); Blood Urea Nitrogen 10 mg/dL (6-20); Calcium 9.3 mg/dL (8.5-10.5); Carbon Dioxide 23 mmol/L (22-29); Chloride 103 mmol/L (98-107); Globulin 2.4 g/dL (1.3-4.6); Glucose 80 mg/dL (65-115); Osmolality Calculated 284 mOsm/kg (285-295); Potassium 3.8 mmol/L (3.5-5.1); Sodium 138 mmol/L (136-145); Total Protein 6.5 g/dL (6.6-8.7)
== END 2025-10-09 02:53 | disposition home or self-care (01) ==
PROVIDERS: Emergency Provider Emergency Medicine; PCP Family Medicine
DX: O26.852 Spotting complicating pregnancy, second trimester (principal); Z79.82 Long term (current) use of aspirin; I10 Essential (primary) hypertension; Z3A.18 18 weeks gestation of pregnancy; F17.290 Nicotine dependence, other tobacco product, uncomplicated
CPT/HCPCS: 36415; 76815; 80053; 81001; 84702; 85025; 85610; 85730; 99284; J7030

== ENCOUNTER → 2025-10-25 09:28 | Outpatient (BNVA) | payer BC, MEDICAID, SELFPAY | PROVIDERS: PCP Family Medicine; Visit Provider Nurse Practitioner Women's Health | DX: Z34.90 Encounter for supervision of normal pregnancy, unspecified, unspecified trimester (principal); Z3A.20 20 weeks gestation of pregnancy | CPT/HCPCS: 82105 ==